=== PATIENT | female | born 2000 | race Caucasian/White ===

== ENCOUNTER 2020-08-14 04:51 | Inpatient (IN) ==
[2020-08-14] MEDS ORDERED: LACTATED RINGERS 500 ML IV PRN (05:13)
[2020-08-14] MEDS ORDERED: BUTORPHANOL 2 MG/ML VIAL IV PRN (05:13)
[2020-08-14] MEDS ORDERED: MEPERIDINE 50 MG/1 ML VIAL IV PRN (05:13)
[2020-08-14] MEDS ORDERED: ONDANSETRON 4 MG/2 ML VIAL IV PRN ×2 (05:13→20:07)
[2020-08-14] MEDS ORDERED: OXYTOCIN/LR 20 UNIT/1,000 ML BAG IV SCH (05:30)
[2020-08-14] MEDS ORDERED: LACTATED RINGERS 1,000 ML IV SCH ×2 (05:30→09:30)
[2020-08-14 05:49] LABS: Basophils % 0.3 % (0.0-0.8); Eosinophils # 0.1 10*3/uL (0.0-0.87); Hematocrit 27.7 VOL% (35.7-47.0); Immature Granulocytes % 0.4 %; Immature Granulocytes Absolute 0.03 #; Lymphocytes # 2.5 10*3/uL (1.4-4.0); Lymphocytes % 34.2 % (21.3-54.2); Mean Corpuscular HGB Conc 32.5 GM/DL (32-36); Mean Corpuscular Volume 97.2 FL (87-102); Mean Platelet Volume 12.3 FL (9.6-12.0); Monocytes % 6.8 % (1.7-12.7); Neutrophils % 57.3 % (38.7-73.9); Platelet Count 118 T/CUMM (130-400); Red Blood Count 2.85 MC/CUMM (3.8-5.5); Red Cell Distribution Width 14.2 % (9.3-17.3); White Blood Count 7.3 T/CUMM (4-12)
[2020-08-14 06:14] LABS: Alanine Aminotransferase 15 U/L (13-56); Albumin 2.3 G/DL (3.4-5.0); Alkaline Phosphatase 208 U/L (45-117); Aspartate Amino Transferase 24 U/L (0-37); Bilirubin,Total < 0.39 MG/DL (0.2-1.0); Blood Urea Nitrogen 7 MG/DL (7-18); Calcium 8.5 MG/DL (8.5-10.1); Estimated Glom Filtration Rate 105 ML/MIN; Glucose 105 MG/DL (74-106); Osmolality,Calculated 274.5 MOS/KG (273-304); Total Protein 5.9 G/DL (6.4-8.3)
[2020-08-14] MEDS ORDERED: AMPICILLIN INJ 2,000 MG in SODIUM CHLORIDE 0.9% 100 ML IV ONE (07:26)
[2020-08-14] MEDS ORDERED: AMPICILLIN 2,000 MG VIAL ONE (07:29)
[2020-08-14] MEDS ORDERED: SODIUM CHLORIDE 0.9% 100 ML IV ONE (07:29)
[2020-08-14] MEDS ORDERED: ePHEDrine 50 MG/ML VIAL IV PRN (09:14)
[2020-08-14] MEDS ORDERED: FAMOTIDINE 20 MG/2 ML VIAL IV ONE (09:14)
[2020-08-14] MEDS ORDERED: LACTATED RINGERS 1,000 ML IV ONE (09:14)
[2020-08-14] MEDS ORDERED: CITRIC ACID/SODIUM CITRATE 30 ML UDCUP PO ONE (09:14)
[2020-08-14] MEDS ORDERED: NALOXONE 0.4 MG/ML VIAL IV PRN (09:15)
[2020-08-14] MEDS ORDERED: diphenhydrAMINE 50 MG/1 ML VIAL IV PRN ×2 (09:15)
[2020-08-14] MEDS ORDERED: hydrOXYzine HCL 25 MG/1 ML VIAL IM PRN (09:15)
[2020-08-14] MEDS ORDERED: PROMETHAZINE 25 MG/1 ML VIAL IM ONE (09:15)
[2020-08-14] MEDS: fentaNYL 2 MCG/ROPIV 0.2% EPID 100 ML EPIDURAL SCH ×2 (09:54→16:16)
[2020-08-14 11:16] LABS: Bilirubin,Urine Negative (Negative); Blood, Urine Negative (Negative); Glucose,Urine (UA) Negative (Negative); Ketones,Urine Negative (Negative); Nitrite,Urine Negative (Negative); Protein,Urine Negative; RBC,Urine <1 /HPF (0-4); Urine Appearance CLEAR (Clear); Urine Color Colorless (Yellow); Urine Specific Gravity 1.005 (1.001-1.035); Urine Urobilinogen < 2.0 EU/DL (0.2-1.0); WBC,Urine <1 /HPF (0-6)
[2020-08-14] MEDS: AMPICILLIN INJ 1,000 MG in SODIUM CHLORIDE 0.9% 100 ML IV SCH ×2 (11:24→15:40)
[2020-08-14] MEDS ORDERED: ceFAZolin 2,000 MG in PREMIX 1 EACH IV ONE (18:48)
[2020-08-14] MEDS ORDERED: OXYTOCIN/LR 30 UNIT/1,000 ML BAG IV ONE (18:49)
[2020-08-14] MEDS ORDERED: OXYTOCIN 10 UNIT/ML VIAL IM ONE (18:49)
[2020-08-14] MEDS ORDERED: ROPIVACAINE 0.5% 30 ML VIAL ONE (19:18)
[2020-08-14] MEDS ORDERED: ONDANSETRON 4 MG/2 ML VIAL ONE (19:19)
[2020-08-14] MEDS ORDERED: LIDOCAINE MPF 2% /EPI 20 ML VIAL ONE (19:23)
[2020-08-14] MEDS ORDERED: MORPHINE 10 MG/10 ML VIAL ONE (19:43)
[2020-08-14 19:56] LABS: Cord Venous Blood PCO2 43.2 MMHG; Cord Venous Blood PO2 36.7
[2020-08-14] MEDS ORDERED: DIPH/TET/ACEL PERT BOOSTER VACCINE 0.5 ML VIAL IM ONE (20:07)
[2020-08-14] MEDS ORDERED: BISACODYL 10 MG SUPP RECTAL PRN (20:07)
[2020-08-14] MEDS ORDERED: MEASLES/MUMPS/RUBELLA VACCINE 0.5 ML VIAL SUBCUT ONE (20:07)
[2020-08-14] MEDS ORDERED: OXYTOCIN/LR 20 UNIT/1,000 ML BAG IV ONE (20:07)
[2020-08-14] MEDS ORDERED: HYDROCORTISONE 2.5% RECTAL CREAM 30 GM TUBE TOP PRN (20:07)
[2020-08-14] MEDS ORDERED: LANOLIN 50% CREAM 0.3 OZ TUBE TOP PRN (20:07)
[2020-08-14] MEDS ORDERED: RHO(D) IMMUNE GLOBULIN 300 MCG SYRINGE IM ONE (20:07)
[2020-08-14] MEDS ORDERED: WITCH HAZEL PADS 100/JAR TOP PRN (20:07)
[2020-08-14] MEDS ORDERED: BENZOCAINE 20%/MENTHOL 0.5% SPRAY 56 GM CAN TOP PRN (20:07)
[2020-08-14] MEDS ORDERED: ACETAMINOPHEN 325 MG TABLET PO PRN (20:07)
[2020-08-14] MEDS: DOCUSATE SODIUM 100 MG CAPSULE PO SCH (21:52)
[2020-08-14] MEDS: IBUPROFEN 800 MG TABLET PO PRN (21:59)
[2020-08-14] MEDS: oxyCODONE/ACETAMINOPHEN 5-325 MG TABLET PO PRN (22:00)
[2020-08-15] MEDS ORDERED: diphenhydrAMINE 50 MG/1 ML VIAL IM PRN (02:48)
[2020-08-15] MEDS ORDERED: diphenhydrAMINE 50 MG/1 ML VIAL IV PRN (03:30)
[2020-08-15] MEDS: ceFAZolin 1,000 MG in SYRINGE 1 EACH IV SCH ×2 (04:16→14:43)
[2020-08-15 07:11] LABS: Basophils % 0.1 % (0.0-0.8); Eosinophils % 0.3 % (0.00-10.9); Hematocrit 20.7 VOL% (35.7-47.0); Immature Granulocytes % 0.2 %; Immature Granulocytes Absolute 0.02 #; Lymphocytes # 1.9 10*3/uL (1.4-4.0); Lymphocytes % 21.1 % (21.3-54.2); Mean Corpuscular HGB Conc 31.9 GM/DL (32-36); Mean Corpuscular Volume 98.1 FL (87-102); Mean Platelet Volume 12.7 FL (9.6-12.0); Monocytes % 5.8 % (1.7-12.7); Neutrophils % 72.5 % (38.7-73.9); Red Cell Distribution Width 14.5 % (9.3-17.3); White Blood Count 9.2 T/CUMM (4-12)
[2020-08-15 07:21] LABS: Hemoglobin 6.6 GM/DL (12.0-16.0); Platelet Count 99 T/CUMM (130-400); Red Blood Count 2.11 MC/CUMM (3.8-5.5)
[2020-08-15] MEDS: oxyCODONE/ACETAMINOPHEN 5-325 MG TABLET PO PRN ×2 (07:26→18:28)
[2020-08-15 07:33] LABS: Hypochromasia 2+; Microcytosis 1+; Platelet Estimate Decreased
[2020-08-15] MEDS ORDERED: SODIUM CHLORIDE 0.9% 1,000 ML IV PRN (07:34)
[2020-08-15] MEDS: METOCLOPRAMIDE 10 MG TABLET PO SCH ×2 (08:00→16:02)
[2020-08-15] MEDS: DOCUSATE SODIUM 100 MG CAPSULE PO SCH ×2 (08:01→20:43)
[2020-08-15] MEDS ORDERED: FERROUS SULFATE 325 MG TABLET PO SCH (09:00)
[2020-08-15] MEDS: IBUPROFEN 800 MG TABLET PO PRN ×2 (12:54→18:35)
[2020-08-15] MEDS ORDERED: ceFAZolin 1,000 MG in SYRINGE 1 EACH IV ONE (14:30)
[2020-08-15] MEDS: MAGNESIUM HYDROXIDE SUSP 30 ML UDCUP PO PRN (16:01)
[2020-08-15] MEDS: SIMETHICONE CHEW 80 MG TABLET PO PRN (16:02)
[2020-08-15 16:47] LABS: Basophils % 0.1 % (0.0-0.8); Eosinophils % 0.4 % (0.00-10.9); Hematocrit 26.2 VOL% (35.7-47.0); Immature Granulocytes % 0.6 %; Immature Granulocytes Absolute 0.06 #; Lymphocytes # 1.7 10*3/uL (1.4-4.0); Lymphocytes % 16.6 % (21.3-54.2); Mean Corpuscular HGB Conc 32.8 GM/DL (32-36); Mean Corpuscular Volume 95.6 FL (87-102); Mean Platelet Volume 11.8 FL (9.6-12.0); Monocytes % 5.3 % (1.7-12.7); NRBC # 0.02 10*3/uL; Platelet Count 127 T/CUMM (130-400); Red Blood Count 2.74 MC/CUMM (3.8-5.5); Red Cell Distribution Width 14.6 % (9.3-17.3); White Blood Count 10.4 T/CUMM (4-12)
[2020-08-15 16:48] LABS: Hemoglobin 8.6 GM/DL (12.0-16.0)
[2020-08-15] MEDS: FERROUS SULFATE 325 MG TABLET PO SCH (20:43)
[2020-08-16] MEDS: oxyCODONE/ACETAMINOPHEN 5-325 MG TABLET PO PRN ×2 (00:06→09:23)
[2020-08-16] MEDS: SIMETHICONE CHEW 80 MG TABLET PO PRN (00:06)
[2020-08-16] MEDS: METOCLOPRAMIDE 10 MG TABLET PO SCH (00:10)
[2020-08-16] MEDS: MAGNESIUM HYDROXIDE SUSP 30 ML UDCUP PO PRN (04:18)
[2020-08-16] MEDS: IBUPROFEN 800 MG TABLET PO PRN (04:18)
[2020-08-16 07:15] VITALS: BP 129/68
[2020-08-16] MEDS: DOCUSATE SODIUM 100 MG CAPSULE PO SCH (08:46)
[2020-08-16] MEDS: FERROUS SULFATE 325 MG TABLET PO SCH (08:47)
== END 2020-08-16 12:20 | disposition home or self-care (01) | DRG 788 ==
LOC: N.LDOUT 04:51 → N.LD 05:13 → N.OB 23:58
PROVIDERS: ADMIT Obstetrics & Gynecology; ATTEND Obstetrics & Gynecology
PROC: LDCSECT (ICD-10-PCS; 2020-08-14 19:30)